=== PATIENT | male | born 1950 | race Hispanic/Latino ===

== ENCOUNTER 2018-03-25 06:20 | Day surgery (SDC) | payer MEDICARE ==
[2018-03-13 11:03] VITALS: BMI 27.8
[2018-03-25] MEDS ORDERED: Lidocaine 1% w Epi 1:100,000 Inj ONE (07:22)
[2018-03-25] MEDS ORDERED: Bacitracin Ointment 30 GM TUBE ONE (07:22)
[2018-03-25] MEDS ORDERED: EPINEPHrine 1 mg/ml (1:1000) Inj ONE ×2 (07:22→12:32)
[2018-03-25] MEDS ORDERED: GELATIN SPONGE,ABSORB/PORCINE 1 EACH SPONGE TP ONE (07:23)
[2018-03-25] MEDS ORDERED: Thrombin Topical 5,000 Int Units Spray Kit ONE (07:23)
--- NOTE | 2018-03-25 07:30 | CP.SDSHP ---
Same Day Surgery H & P - History Proposed Procedure: Right shoulder arthroscopic rotator cuff repair, acromioplasty Pre-Op Diagnosis: Right shoulder arthroscopic rotator cuff tear, AC joint arthropathy, impingement, DJD glenohumeral joint - Previous Medical/Surgical History Cardiac: Hypertension Comments: GERD Previous Surgical History: lumbar surgery - Allergies Allergies: Allergies Penicillins Allergy (Verified 03/25/18 06:45) RASH - Physical Exam Vital Signs: Vital Signs 03/25/18 07:18 Temperature 98.2 F Pulse Rate 93 H Respiratory 18 Rate Blood Pressure 148/76 O2 Sat by Pulse 98 Oximetry Heart: WNL Lungs: WNL GI: WNL - {Optional Preform as Required} Ortho: Other (limited painful motion, NVID, +Radial pulse, skin intact, no erythema) Other Pertinent Findings: chart reviewed. MRI on chart, reviewed. [place] REVIEW SPECIALIST patient report reviewed, no CDS. Patient counseled on the risks of addiction, physical or psychological dependence, and overdose associated with opioid drugs and the danger of taking opioid drugs with alcohol and other central nervous system depressants, and cautioned patient on storage and disposal. - Impression Impression: 68M with right shoulder rotator cuff tear for arthroscopy Pt. Evaluated Today:Candidate for Anesthesia & Procedure: Yes - Date & Time Date: 03/25/18 Time: 07:33 Short Stay Discharge - Short Stay Discharge Admitting Diagnosis/Reason for Visit: M19.011,M25.511,M25.611 Disposition: HOME/ ROUTINE Referrals: Shay Lee III, MD [Primary Care Provider] - Past Patient History - Past Medical History & Family History Past Medical History?: Yes - Past Social History Smoking Status: Never Smoked - CARDIAC Hx Cardiac Disorders: Yes Hx Hypertension: Yes - PULMONARY Hx Respiratory Disorders: No - NEUROLOGICAL Hx Neurological Disorder: No - HEENT Hx HEENT Problems: No - ENDOCRINE/METABOLIC Hx Endocrine Disorders: No - HEMATOLOGICAL/ONCOLOGICAL Hx Blood Disorders: No Hx Blood Transfusions: No - INTEGUMENTARY Hx Dermatological Problems: No - MUSCULOSKELETAL/RHEUMATOLOGICAL Hx Musculoskeletal Disorders: Yes Hx Arthritis: Yes - GASTROINTESTINAL Hx Gastrointestinal Disorders: Yes Hx Gastritis: Yes Hx Gastroesophageal Reflux: Yes Other/Comment: H. PYLORIC - GENITOURINARY/GYNECOLOGICAL Hx Genitourinary Disorders: No - PSYCHIATRIC Hx Emotional Abuse: No Hx Physical Abuse: No - SURGICAL HISTORY Hx Surgeries: Yes Other/Comment: back surgery. cyst removed from the right face - ANESTHESIA Hx Anesthesia: Yes Hx Anesthesia Reactions: No Hx Malignant Hyperthermia: No Has any member of the family had a problem w/ anesthesia?: No
[2018-03-25] MEDS ORDERED: Succinylcholine 200 mg/10 ml Inj IV ONE (12:37)
[2018-03-25] MEDS ORDERED: Propofol 10 mg/ml Inj (20 ML) ONE (12:37)
[2018-03-25] MEDS ORDERED: Rocuronium 10 mg/ml (5 ml) ONE (12:37)
[2018-03-25] MEDS ORDERED: Dexamethasone 4 mg/1 ml ONE (14:20)
[2018-03-25] MEDS ORDERED: ePHEDrine 50 mg/ml Inj ONE (14:28)
[2018-03-25] MEDS ORDERED: Lactated Ringer's 1,000 ML IV ONE ×2 (15:03→16:46)
[2018-03-25] MEDS ORDERED: Phenylephrine 10 mg/ml Inj ONE (15:16)
[2018-03-25] MEDS ORDERED: Neostigmine 1:1000 (1 mg/ml) Inj ONE (15:20)
[2018-03-25] MEDS ORDERED: Oxycodone/Acetaminophen 5/325 mg Tab PO PRN (15:54)
[2018-03-25] MEDS ORDERED: Lactated Ringer's 1,000 ML IV SCH ×2 (16:00→17:00)
[2018-03-25] MEDS ORDERED: Dexamethasone 4 mg/1 ml IVP PRN (16:51)
[2018-03-25 18:56] VITALS: RESP 18
--- NOTE | 2018-03-25 19:34 | PCM.SURG1 ---
Surgeon's Initial Post Op Note - Surgeon's Notes Surgeon: Rosa Sheriff Detective: 1st assist KENDELL Latham Type of Anesthesia: General Endo, Block Regional Anesthesia Administered By: Dr Yariel Vivar Pre-Operative Diagnosis: Rotator cuff tear R shoulder Operative Findings: grade 3 tear R rotator cuff. tear glenoid labrum. long head biceps detachment. A/C joint arthritis. subacromial impingement Post-Operative Diagnosis: as above Operation Performed: arthroscopic rotator cuff repair. arthroscopic biceps tenodesis. arthroscopic repair SLAP lesion. arthroscopic partial distal claviculectomy. arthroscopic partial acromiplasty Specimen/Specimens Removed: tendon, bone cartilage Estimated Blood Loss: EBL {In ML}: 15 Blood Products Given: N/A Drains Used: No Drains Post-Op Condition: Good Date of Surgery/Procedure: 03/25/18 Time of Surgery/Procedure: 14:35 (time in room/anaesthesia induction time 1300)
[2018-03-25 19:48] VITALS: BP 142/78; PULSE 102; TEMP 98.6; O2SAT 96
--- NOTE | 2018-03-25 20:27 | PCM.ANESB1 ---
Interscalene Block - Brachial Plexus Date of Procedure: 03/25/18 Anesthesiologist: Yariel Vivar Pre-Procedure Diagnosis: R shoulder arthritis Post-Procedure Diagnosis: R shoulder arthritis Procedure Performed: Interscalene Block of Brachial Plexus Right - Procedure Interscalene Block of Brachial Plexus: This procedure was explained to the patient that it is for post-operative pain management. Consent was obtained after a thorough discussion with the patient regarding the benefits and possible complications of local anesthetic block of the Brachial Plexus at the Interscalene area. The patient was brought to the Operating Room and standard monitors were applied. Time out was held with the circulating nurse to confirm the correct surgery and appropriate block. After applying Oxygen by nasal cannula and administering IV Sedation, the patient's head was gently rotated away from the Right operative shoulder and the anterior scalene groove was carefully palpated. The ultrasound transducer was then applied to the skin in the transverse plane and the brachial plexus was visualized lateral to the carotid artery and in between the anterior and middle scalene muscles. After identification,the anterior lateral portion of the neck was prepped with Chlorhexidine and Lidocaine 1% was injected subcutaneously for topical analgesia. At this point, a # 22 gauge Stimuplex 2 inches insulated needle was inserted into the interscalene groove and directed in a caudal and midline direction. The needle was inserted lateral to the ultrasound transducer in-plane towards the brachial plexus in a onlvobm-[id number] direction. Needle advancement was performed carefully under direct ultrasound visualization. Nerve stimulator was used and twitched of the affected extremity including the hand brachialis muscles, biceps and the deltoid was obtained at a current of 0.8MA. After repeated negative aspiration, 20cc of 0.5% ropivacaine was injected in 5cc aliquots. Under ultrasound guidance the local anesthetics were observed surrounding the roots of the brachial plexus. The needle was removed intact and sterile dressing was applied. The patient had stable vital signs, was conscious and in no apparent distress. The patient tolerated the interscalene block of the brachial plexus well with stable vital signs and was prepared for subsequent surgery.
--- NOTE | 2018-03-26 12:12 | OP ---
Copied To: Shay Lee MD Attending MD: Shay Lee MD PROCEDURE DATE: 03/25/2018 LOCATION: [facility]. PREOPERATIVE DIAGNOSIS: Grade 3 rotator cuff tear of the right shoulder. POSTOPERATIVE DIAGNOSES: 1. Grade 3 rotator cuff tear of the right shoulder with retraction. 2. Tear of glenoid labrum. 3. Long head biceps tendon detachment, acromioclavicular joint arthritis, subacromial impingement, bursitis in the subacromial space. OPERATIVE FINDINGS: 1. Grade 3 rotator cuff tear, right shoulder. 2. Tear of glenoid labrum. 3. Long head biceps tendon detachment, AC joint arthrosis, subacromial impingement and bursitis in the subacromial space. PROCEDURES PERFORMED: 1. Arthroscopic rotator cuff repair with two anchors. 2. Intra-articular arthroscopic biceps tenodesis. 3. Arthroscopic repair of SLAP lesion right shoulder, arthroscopic partial and distal claviculectomy, arthroscopic partial acromioplasty, arthroscopic debridement, lysis of adhesions of the subacromial space. SPECIMENS REMOVED: Tendon, bone, cartilage and bursa. BLOOD LOSS: 15 mL. BLOOD PRODUCTS: None. DRAINS: No drains. POSTOPERATIVE CONDITION: Stable. SURGEON: Shay Lee MD CUSTOMER ENGINEERING SPECIALIST: Felecia Glez PA-C COMPLICATIONS. No complications. TIME OF SURGERY: 14:35. ANESTHESIA INDUCTION TIME: 1300. OPERATIVE PROCEDURE: Benjy Vasquez is a 68-year-old gentleman who has been treated conservatively for right rotator cuff tear. Pros, cons, risks and benefits of surgical approach were discussed at length with the patient and his brother through the culturally competent loom repairer, his brother. The possibility of mechanical failure, infection, stiffness, secondary or tertiary surgery was discussed. The patient can no longer withstand the discomfort and wished the surgery to be accomplished. The patient has failed a conservative course. Informed consent had been obtained. After the satisfactory induction of general and scalene block anesthesia by Dr. Yariel Vivar, after having identified side, site and procedure and a critical pause/time-out, after the satisfactory induction of the anesthetic, after having obtained informed consent in the above fashion with the right upper extremity immobilized the shoulder position, the right upper extremity was prepped and free draped in usual fashion for upper extremity surgery. After having identified side, site and procedure and a critical pause/time-out after the satisfactory induction of the anesthetic, after sterilely prepping and draping in a point approximately one thumbs breadth inferior to the lateral aspect of the acromion and one thumbs breadth medial. The joint is insufflated with 10 mL of 1% lidocaine without epinephrine using #11 blade followed by spreading, introduction of the blunt trocar, the arthroscope was introduced. There was found to be a massive amount of synovitis and some chondral damage and a sukhjinder tear of the inner aspect of the glenoid labrum extending to the root of the biceps tendon with instability and detachment of the long head of the biceps tendon and tear of the glenoid labrum extending down to the 3:30 position anteriorly. Great care was taken to stay lateral to the coracoid process. Using #18 gauge spinal needle followed by #11 blade, followed by spreading, the Wissinger gutierrez was introduced and the cannula was introduced anteriorly. With the arthroscope posteriorly, an extensive debridement of the glenohumeral joint was accomplished using the arthroscopic shaver. The inner free edge of the labrum to the root of the biceps tendon attachment was debrided using the arthroscopic shaver. Please refer to the video photographs. The interval between the labrum and the glenoid is developed using a periosteum elevator. At this point in time, at the 1 o'clock position on the glenoid clock face using the lasso, the nitinol wire was introduced, brought out anteriorly. The fiber tape was loaded and brought out anteriorly. Drilling was accomplished. The PushLock anchor is loaded and the labrum was thus repaired with the PushLock anchor. A second anchor was employed at the 3 o'clock position. Attention was now turned to the biceps tendon. The interval between the biceps tendon attachment of the supraglenoid tubercle was developed using the arthroscopic shaver. Using the 90-degree lasso at the base of the biceps tendon, the nitinol wire was brought out anteriorly. Drilling was accomplished and the biceps tenodesis was accomplished with the PushLock anchor. Extensive debridement and chondroplasty of the glenoid was accomplished. The arthroscopic shaver was used to debride the synovium and the partial synovectomy was accomplished. The arthroscope was now placed in the subacromial space. Triangulation was accomplished using #18 gauge spinal needle followed by #11 blade followed by spreading introduction of the blunt trocar. There was a massive amount of adhesions and bursal inflammation of the subacromial space. With the arthroscope posteriorly, using the arthroscopic shaver, a partial bursectomy was accomplished and great care was taken to expose the scapular root as well as the acromion. Using a combination of the arthroscopic wand and the arthroscopic shaver, careful debridement and bursectomy of the subacromial space was accomplished. This having been accomplished, the wound was thoroughly irrigated. Extensive synovectomy and bursectomy having been accomplished, the rotator cuff was evaluated and there was found to be a large rotator cuff tear with retraction. There is a lateral leaf and a medial leaf. Mobilization was accomplished through the lateral portal using a combination of the periosteum elevator and the arthroscopic cuff grasper. This having been accomplished, the anterior portal was extended as well to afford approach to the lateral leaf of the rotator cuff. This having been accomplished, the Passports were placed anteriorly and laterally as working portals. With the arthroscope posteriorly, the scorpion was introduced into the medial leaf and a triangular gathering suture was brought out of the lateral portal. This having been accomplished with the arm in abduction and internal rotation, using a combination of the arthroscopic shaver and the ArthroCare wand, the base at the greater tuberosity was carefully debrided. This having been accomplished with the arthroscope laterally and with the arm in abduction and internal rotation, drilling was accomplished and the SwiveLock corkscrew anchor was introduced and it is seated. The peak anchor was seated and found to be in acceptable position. This having been accomplished with the arthroscope now posteriorly, the scorpion is used to grasp the lateral leaf of the rotator cuff tear with the arm in abduction and rotation. This was brought out laterally as well. This having been accomplished with the arm in abduction and rotation, coverage was accomplished. The corkscrew anchor was loaded with the peak SwiveLock and this was introduced and seated, found to be excellent. At this point in time, the convergence of the tear was accomplished with loading the additional FiberWire sutures and they are deploying with anchors to the medial and lateral leafs and using a sliding knot, this was repaired as well using the knot pusher. The wound was thoroughly irrigated. At this point in time with the arthroscope posteriorly, an arthroscopic acromioplasty was accomplished with the bur. The arthroscope was now positioned laterally and the bur was brought anteriorly and a partial distal claviculectomy was accomplished for the distal 1 cm of the clavicle to include the articular surface. The arthroscope was moved posteriorly, partial acromioplasty was completed, partial distal claviculectomy is completed. The wound was thoroughly irrigated and closure was in layers with interrupted Vicryl and nylon. It should be noted that the hemostasis had been controlled prior to closure. Rotator cuff having been repaired. Partial acromioplasty having been accomplished, partial distal claviculectomy having been accomplished. Again, the wound was thoroughly irrigated. SLAP lesion had been repaired. Biceps tenodesis had been accomplished. Extensive debridement of the glenohumeral joint and the subacromial space was accomplished. Closures in layers with interrupted Vicryl and nylon. Compression dressing and shoulder abduction splint was applied. Shay Lee MD
== END 2018-03-25 18:54 | disposition home or self-care (01) ==
LOC: H.OPSURG 06:20
PROVIDERS: ATTEND Orthopaedic Surgery
DX: M75.101 Unspecified rotator cuff tear or rupture of right shoulder, not specified as traumatic (principal); M75.51 Bursitis of right shoulder; M19.011 Primary osteoarthritis, right shoulder; M25.811 Other specified joint disorders, right shoulder; K21.9 Gastro-esophageal reflux disease without esophagitis; K29.70 Gastritis, unspecified, without bleeding; I10 Essential (primary) hypertension; Z88.0 Allergy status to penicillin
CPT/HCPCS: 29807; 29824; 29826; 29827; 29828; 88305; C1713; J0171; J0330; J1100; J2001; J2370; J2405; J2704; J2710; J3010; J7030; J7120

== ENCOUNTER 2018-08-24 07:30 | Day surgery (SDC) | payer MEDICARE ==
[2018-08-20 08:08] VITALS: BMI 25.8
[2018-08-24] MEDS ORDERED: MethylPREDNISolone Depo 40 mg/ml Inj ONE (08:06)
[2018-08-24] MEDS ORDERED: Bacitracin Ointment 30 GM TUBE ONE (08:07)
[2018-08-24] MEDS ORDERED: Thrombin Topical 5,000 Int Units Spray Kit ONE (08:07)
[2018-08-24] MEDS ORDERED: Absorbable Gelatin Sponge Size 12-7 ONE (08:07)
[2018-08-24] MEDS ORDERED: Bupivacaine 0.5% Inj(30mL) ONE (08:07)
[2018-08-24] MEDS ORDERED: Lidocaine 2% MPF (5 ml) Inj ONE (08:07)
[2018-08-24] MEDS ORDERED: Lactated Ringer's 1,000 ML IV ONE ×2 (08:52→14:45)
--- NOTE | 2018-08-24 08:54 | CP.SDSHP ---
Same Day Surgery H & P - History Proposed Procedure: Right elbow ulnar nerve decompression Pre-Op Diagnosis: Right elbow ulnar nerve entrapment - Previous Medical/Surgical History Cardiac: Hypertension Misc: Other (GERD, gastritis) Pain: 4.Moderate Pain Previous Surgical History: R shoulder arthroscopy, lumbar surgery, face cyst removal - Allergies Allergies: Allergies Penicillins Allergy (Verified 08/20/18 08:08) RASH - Current Medications Current Medications: as per Med rec - Physical Exam General Appearance: NAD Vital Signs: Vital Signs 08/24/18 08/24/18 08:32 08:36 Temperature 97.9 F Pulse Rate 75 75 Respiratory 18 Rate Blood Pressure 121/78 O2 Sat by Pulse 98 Oximetry Mental Status: Alert & Oriented x3 Neuro: WNL Heart: WNL Lungs: WNL GI: WNL - {Optional Preform as Required} Abdomen: WNL Integument: WNL Ortho: Other (R elbow FROM, sensation and motor intact MN/UN/RN, radial pulse intact) - Impression Impression: Patient is a 68 y/o male presenting for elevective right ulnar nerve decompression. Risks/benefits/alternatives explained to patient who understands and agrees to proceed with above procedure. Medical clearance and UE EMG results in chart Pt. Evaluated Today:Candidate for Anesthesia & Procedure: Yes - Date & Time Date: 08/24/18 Time: 08:00 Short Stay Discharge - Short Stay Discharge Admitting Diagnosis/Reason for Visit: S54.01XA / S66.901A/ S54.02XD / Disposition: HOME/ ROUTINE Referrals: Shay Lee III, MD [Primary Care Provider] -
[2018-08-24] MEDS ORDERED: Rocuronium 10 mg/ml (5 ml) ONE (10:32)
[2018-08-24] MEDS ORDERED: Etomidate 20 mg/10ml Inj IV ONE (10:32)
[2018-08-24] MEDS ORDERED: Lidocaine 4% (Laryng-O-Jet) Kit MM ONE (10:32)
[2018-08-24] MEDS ORDERED: Succinylcholine Chloride 20 mg/ml Syr (5 ml) IV ONE (10:32)
[2018-08-24] MEDS ORDERED: Propofol 10 mg/ml Inj (20 ML) ONE (10:32)
[2018-08-24] MEDS ORDERED: Phenylephrine 10 mg/ml Inj ONE (12:30)
[2018-08-24] MEDS ORDERED: Neostigmine 1:1000 (1 mg/ml) Inj ONE (13:31)
[2018-08-24] MEDS ORDERED: Lactated Ringer's 500 ML IV ONE ×2 (14:43→16:30)
[2018-08-24] MEDS ORDERED: HYDROmorphone 0.5 mg/0.5 ml ISec IVP PRN (14:48)
[2018-08-24] MEDS ORDERED: Lactated Ringer's 1,000 ML IV SCH (15:00)
[2018-08-24] MEDS ORDERED: Oxycodone/Acetaminophen 5/325 mg Tab PO PRN ×2 (15:14)
--- NOTE | 2018-08-24 16:12 | PCM.SURG1 ---
Surgeon's Initial Post Op Note - Surgeon's Notes Surgeon: Rosa Electrical Panel Builder: KENDELL Latham/ 2nd assist Jose Salinas Type of Anesthesia: General Endo Anesthesia Administered By: DR Clark Pre-Operative Diagnosis: Tardy ulnar nerve palsy R elbow. impingement medial epicondyle Operative Findings: as above. SEVERE compression opf the ulnar nerve at the ulnar groove and the intermuscular septum Post-Operative Diagnosis: as above Operation Performed: Decompression R ulnar nerve. partial medial epicondylectomy/osteoplasty medfial epiconsyle. ulnar neurolysis. resection inetrmuscular septum. applx posteruior splint Specimen/Specimens Removed: bone/ epineurim/ tendon Estimated Blood Loss: EBL {In ML}: 10 Blood Products Given: N/A Drains Used: No Drains Post-Op Condition: Fair Date of Surgery/Procedure: 08/24/18 Time of Surgery/Procedure: 12:50 (time in room 12:05)
--- NOTE | 2018-08-24 16:59 | RAD ---
Date of service: 08/24/2018 PROCEDURE: Radiographs of the right elbow. HISTORY: s/p ulnar nerve decompression COMPARISON: No prior. FINDINGS: BONES: Normal. No fracture. JOINTS: Normal. No osteoarthritis. SOFT TISSUES: Normal. JOINT EFFUSION: None. OTHER FINDINGS: Surgical clips identified. Limitations of the current study: Detail obscured by overlying fiberglass cast. IMPRESSION: Satisfactory postoperative status.
[2018-08-24 17:03] VITALS: RESP 18; TEMP 98.6
--- NOTE | 2018-08-24 17:04 | RAD ---
Date of service: 08/24/2018 PROCEDURE: Intraoperative Fluoroscopy. HISTORY: TENDON RELEASE FINDINGS: Fluoroscopic assistance was provided for tendon release. Please refer to the operative report from BRENDA Bal. Total fluoroscopic time (continuous mode) utilized during the procedure 4.5 seconds. Total exam DLP: 0.11 (mGy).
[2018-08-24 18:50] VITALS: BP 112/53; PULSE 90; O2SAT 96
--- NOTE | 2018-08-25 14:07 | OP ---
PROCEDURE DATE: 08/24/2018 TIME IN THE ROOM: 12:05 p.m. INCISION TIME: 12:50. PREOPERATIVE DIAGNOSES: 1. Tardy ulnar nerve palsy, right elbow. 2. Impingement of the ulnar nerve on the medial epicondyle. POSTOPERATIVE DIAGNOSES: 1. Tardy ulnar palsy, right elbow. 2. Impingement of the ulnar nerve on the medial epicondyle and the medial intermuscular septum. OPERATIVE FINDINGS: 1. Severe compression of the ulnar nerve at the ulnar groove and proximally with marked flattening. 2. Impression and impingement from the intermuscular septum. OPERATIONS PERFORMED: 1. Exploration and decompression of the right ulnar nerve at the elbow. 2. Partial medial epicondylectomy, osteoplasty of the medial epicondyle. 3. Ulnar neurolysis under eyeglass magnification. 4. Resection of the intermuscular septum. 5. Application of posterior splint. 6. Positioning of fluoroscope interpretation of video images. SURGEON: Shay Lee MD PRESALES SENIOR SPECIALIST: [place]SANA Painter, certified registered nursing airplane first officer. SECOND BUFFING WHEEL OPERATOR: Jose Tomlinson PA-C. SPECIMENS REMOVED: Bone, epineurium, tendon. BLOOD LOSS: 10 mL. BLOOD PRODUCTS GIVEN: No blood products given. DRAINS: No drains. POSTOPERATIVE CONDITION: Stable. OPERATIVE INDICATION: Benjy Vasquez is a patient well known to my practice, 68-year-old gentleman who is status post right rotator cuff repair and has marked osteoarthritis of the left shoulder. The patient presents with persistent numbness, tingling and pain in the ulnar nerve distribution of the right upper extremity. The patient has had an EMG examination by Dr. Brady Smith, which was positive for impingement on the ulnar nerve, moderate to severe. The patient could no longer withstand the pain, could not sleep at night, was dropping things, has persistent pain in the upper extremity to the hand. Pros, cons, risks and benefits of ulnar nerve decompression, osteoplasty and repair were discussed. Possibility of nerve injury, mechanical failure, infection, thromboembolic disease, secondary or tertiary surgery was discussed. The patient can no longer withstand the discomfort and wished that surgery be accomplished. OPERATIVE PROCEDURE: After having obtained informed consent in the above fashion, after the satisfactory induction of general endotracheal anesthesia by Dr. Garcia, after having identified side, site and procedure and a critical pause/time-out, the patient identified as Benjy Vasquez in the supine position with all bony prominences well padded, the right upper extremity was prepped and free draped in the usual fashion for upper extremity surgery. The operation was performed under eyeglass magnification. The upper extremity was exsanguinated using a 6-inch Esmarch bandage, tourniquet which had been applied was inflated to 250 mmHg. The operation was performed under eyeglass magnification control. An incision was described on the medial aspect of the elbow, centered on the epicondyle with three fingerbreadths distally, four fingerbreadths proximally. The skin incision was carried down through the skin and subcutaneous tissue. The operation was performed under eyeglass magnification. This having been accomplished, the skin incision was carried down through the skin and subcutaneous tissue. Hemostasis controlled with the bipolar cautery. Great care was taken to avoid an injury to the ulnar nerve. Dissection was carried down to the medial epicondyle. The ulnar nerve was identified at the ulnar groove and was found to be markedly flattened and compressed. The dissection was carried out from the posterior aspect of the medial epicondyle proximally. The intermuscular septum was found to be robust and impinging on the ulnar nerve as well as it exits the intermuscular septum. The ulnar nerve was identified and carefully freed using a tenotomy Magallanes dissecting scissors. Dissection was carried down to the elbow, the radicals of the vessels at the joint were controlled with the bipolar. Dissection was carried out distally into the flexor pronator musculature. This having been accomplished, the wound was thoroughly irrigated. A 1.25-inch Jb drain was placed and great care was taken with minimal amount of tension to free up the ulnar nerve. There was found to be marked compression, which as soon as the nerve was severed free, it was already responding in a positively favorable way. The ulnar nerve becomes more robust at the elbow. There was marked compression, which is in total agreement with the EMG findings. A careful ulnar neurolysis was accomplished again with the Jb drain accompanying the nerve and controlling the nerve. A wet lap sponge was placed to protect the nerve with a malleable retractor. At this point in time, the flexor pronator mass was elevated and a sleeve was kept for later closure. Osteotomy of the medial epicondyle was accomplished using the oscillating saw. Partial medial epicondylectomy was accomplished. Partial osteoplasty was accomplished at this point in time using the bur. Great care was taken to avoid injury to the ulnar nerve and this was successful. A careful ulnar neurolysis was accomplished. At this point in time, the wound was thoroughly irrigated. The intermuscular septum was addressed at this point in time and using #15 blade, the intermuscular septum was excised to allow decompression of the ulnar nerve proximally. So the ulnar nerve having been decompressed, partial ulnar neurolysis was accomplished, partial medial epicondylectomy was accomplished as well as partial osteoplasty. The wound was thoroughly irrigated. The flexor pronator mass was repaired using interrupted Vicryl suture. The wound was thoroughly irrigated. Tourniquet was deflated. Hemostasis controlled. Closures in layers with interrupted Vicryl and sarah beth. Ludwin Collado compression dressing and posterior splint was applied. Shay Lee MD
== END 2018-08-24 18:55 | disposition home or self-care (01) ==
LOC: H.OPSURG 07:30
PROVIDERS: ATTEND Orthopaedic Surgery
DX: G56.21 Lesion of ulnar nerve, right upper limb (principal); K21.9 Gastro-esophageal reflux disease without esophagitis; I10 Essential (primary) hypertension; Z88.0 Allergy status to penicillin
CPT/HCPCS: 64718; 73080; 88304; J2001; J2370; J2704; J2710; J3010; J7030; J7120